=== PATIENT | female | born 1970 ===

== ENCOUNTER 2017-09-29 10:00 | Emergency (ER) | payer SELFPAY ==
[2017-09-29 10:04] VITALS: TEMP 97
[2017-09-29 10:05] VITALS: BMI 29.1
[2017-09-29 10:18] VITALS: RESP 20; O2SAT 98
[2017-09-29] MEDS ORDERED: Sodium Chloride 0.9% 1,000 ML IV STA (10:49)
--- NOTE | 2017-09-29 10:59 | ED PDOC ---
HPI: General Adult Time Seen by Provider: 09/29/17 10:24 Chief Complaint (Nursing): GI Problem Chief Complaint (Provider): Dizziness History Per: Patient History/Exam Limitations: no limitations Onset/Duration Of Symptoms: Hrs Have you had recent travel within the past 21 days to any of the following countries: [place], [place], [place] or [place]?: No Current Symptoms Are (Timing): Still Present Additional History Per: Patient Additional Complaint(s): 47yo female, no past medical history, comes to ER for evaluation of dizziness, described as room spinning sensation, since early this morning. She states the dizziness is worse when she changes position, and has had x5 episodes of bilious vomiting. Patient also has a secondary complaint of dysuria, described as "burning" x 2 months; she has not been evaluated for the dysuria by her PMD. Patient otherwise denies any fever, chills, vision changes, hearing changes, back pain, weakness, numbness, or diarrhea. Past Medical History Reviewed: Historical Data, Nursing Documentation, Vital Signs Vital Signs: Last Vital Signs Temp 97 F L 09/29/17 10:15 Pulse 66 09/29/17 10:15 Resp 20 09/29/17 10:15 BP 151/102 H 09/29/17 10:15 Pulse Ox 98 09/29/17 11:40 - Medical History PMH: No Chronic Diseases Denies: Diabetes (+ pre-diabetic) - Surgical History Surgical History: No Surg Hx - Family History Family History: States: No Known Family Hx, Unknown Family Hx - Living Arrangements Living Arrangements: With Family - Social History Current smoker - smoking cessation education provided: No Alcohol: Social Drugs: Denies - Immunization History Hx Tetanus Toxoid Vaccination: No Hx Influenza Vaccination: No Hx Pneumococcal Vaccination: No - Home Medications Home Medications: Ambulatory Orders Medication Instructions Recorded Meclizine [Antivert] 25 mg PO TID PRN #30 tab 09/29/17 - Allergies Allergies/Adverse Reactions: Allergies Allergy/AdvReac Type Severity Reaction Status Date / Time No Known Allergies Allergy Verified 09/29/17 10:15 Review of Systems ROS Statement: Except As Marked, All Systems Reviewed And Found Negative Constitutional: Negative for: Fever, Chills Eyes: Negative for: Vision Change Gastrointestinal: Positive for: Vomiting. Negative for: Abdominal Pain, Diarrhea Genitourinary Female: Positive for: Dysuria Musculoskeletal: Negative for: Back Pain Neurological: Positive for: Dizziness. Negative for: Weakness, Numbness Physical Exam - Reviewed Nursing Documentation Reviewed: Yes Vital Signs Reviewed: Yes - Physical Exam Appears: Positive for: Non-toxic Head Exam: Positive for: ATRAUMATIC, NORMAL INSPECTION, NORMOCEPHALIC Skin: Positive for: Normal Color, Warm, DRY Eye Exam: Positive for: Normal appearance Neck: Positive for: Normal, Painless ROM, Supple Cardiovascular/Chest: Positive for: Regular Rate, Rhythm, Chest Non Tender Respiratory: Positive for: Normal Breath Sounds Gastrointestinal/Abdominal: Positive for: Normal Exam, Soft. Negative for: Tenderness Back: Positive for: Normal Inspection. Negative for: L CVA Tenderness, R CVA Tenderness Extremity: Positive for: Normal ROM. Negative for: Pedal Edema, Deformity Neurologic/Psych: Positive for: Alert, Oriented. Negative for: Motor/Sensory Deficits - Laboratory Results Result Diagrams: 09/29/17 11:00 09/29/17 11:00 - ECG O2 Sat by Pulse Oximetry: 98 (RA) Pulse Ox Interpretation: Normal Medical Decision Making Medical Decision Making: Impression: Vertigo Plan: -- Labs -- EKG -- Meclizine 25mg PO -- Zofran 4mg IVP -- IV Fluids 1139 Patient reports improvement in headache but states the dizziness is persistent. CT Head w/o contrast ordered. Scribe Attestation: Documented by Justa Mittal, acting as a scribe for Zhane Jacobs MD. Provider Scribe Attestation: All medical record entries made by the Scribe were at my direction and personally dictated by me. I have reviewed the chart and agree that the record accurately reflects my personal performance of the history, physical exam, medical decision making, and the department course for this patient. I have also personally directed, reviewed, and agree with the discharge instructions and disposition. 1.15p - feeling better. CT is normal. labs are normal. Will d/c with Rx Disposition - Clinical Impression Clinical Impression: Vertigo, Elevated blood pressure reading - Patient ED Disposition Is Patient to be Admitted: No Doctor Will See Patient In The: Office Counseled Patient/Family Regarding: Diagnosis, Need For Followup, Rx Given - Disposition Referrals: [facility] [Outside] Disposition: Routine/Home Disposition Time: 13:30 Condition: FAIR Prescriptions: Meclizine [Antivert] 25 mg PO TID PRN #30 tab PRN Reason: Dizziness Instructions: Vertigo (a Type of Dizziness), Hypertension (ED), High Blood Pressure (DC) Forms: [employer] ([place]er) Print Language: NAMIBIAN - POShey Present On Arrival: None
[2017-09-29 11:11] LABS: BASO % 0.6 % (0.0-2.0); EOS % 0.6 % (0.0-4.0); LYMPH # 1.6 K/uL (1.0-4.3); LYMPH % 21.5 % (20.0-40.0); MEAN CELL VOLUME 82.5 fl (81.0-99.0); MEAN CORPUSCULAR HEMOGLOBIN 27.7 pg (27.0-31.0); MEAN CORPUSCULAR HGB CONC 33.6 g/dL (33.0-37.0); MEAN PLATELET VOLUME 9.2 fl (7.2-11.7); MONO # 0.3 K/uL (0.0-0.8); MONO % 3.5 % (0.0-10.0); NEUT # 5.4 K/uL (1.8-7.0); NEUT % 73.8 % (50.0-75.0); NRBC % 0.1 % (0.0-0.0); RBC 5.04 Mil/uL (3.80-5.20); RED CELL DISTRIBUTION WIDTH 13.7 % (11.5-14.5); WHITE BLOOD COUNT 7.4 K/uL (4.8-10.8)
[2017-09-29 11:18] LABS: ALB/GLOB RATIO 1.2 (1.0-2.1); ALBUMIN 4.6 g/dL (3.5-5.0); ALT/SGPT 52 U/L (9-52); AST/SGOT 41 U/L (14-36); BLOOD UREA NITROGEN 11 mg/dl (7-17); CALCIUM 9.2 mg/dL (8.4-10.2); GFR AFRICAN-AMERICAN > 60; GFR NON-AFRICAN AMERICAN > 60; LIPASE 24 U/L (23-300)
--- NOTE | 2017-09-29 12:48 | CT ---
Date of service: 09/29/2017 PROCEDURE: CT HEAD WITHOUT CONTRAST. HISTORY: dizziness COMPARISON: None available. TECHNIQUE: Axial computed tomography images were obtained through the head/brain without intravenous contrast. Radiation dose: Total exam DLP = 794.2 mGy-cm. This CT exam was performed using one or more of the following dose reduction techniques: Automated exposure control, adjustment of the mA and/or kV according to patient size, and/or use of iterative reconstruction technique. . FINDINGS: HEMORRHAGE: No intracranial hemorrhage. BRAIN: No mass effect or edema. No atrophy or chronic microvascular ischemic changes. VENTRICLES: Unremarkable. No hydrocephalus. CALVARIUM: Unremarkable. PARANASAL SINUSES: Unremarkable as visualized. No significant inflammatory changes. MASTOID AIR CELLS: Unremarkable as visualized. No inflammatory changes. OTHER FINDINGS: None. IMPRESSION: No acute intracranial hemorrhage.
[2017-09-29] MEDS ORDERED: Promethazine 25 MG in Sodium Chloride 0.9% 50 ML IVPB STA (15:18)
--- NOTE | 2017-09-29 16:27 | CARD ---
APPROVED REPORT Date of service: 09/29/2017 EKG Measurement Heart [id number] <Conclusion> Normal sinus rhythm Normal ECG
[2017-09-29 17:20] VITALS: BP 132/86; PULSE 67
== END 2017-09-29 17:21 | disposition home or self-care (01) ==
LOC: H.ER 10:00
DX: R42 Dizziness and giddiness (principal); R03.0 Elevated blood-pressure reading, without diagnosis of hypertension
CPT/HCPCS: 70450; 80053; 81025; 82948; 83690; 85025; 93005; 96374; 99284; J2405; J2550; J7030